=== PATIENT | male | born 1985 | race Two or more races ===

== ENCOUNTER 2023-06-01 21:08 | Emergency (ER) | payer OTHER ==
[~2023-06-01] VITALS: Ht 167.6 cm; Wt 112.5 kg
[2023-06-01] MEDS ORDERED: ENALAPRILAT DIHYDRATE 2.5 MG/2 ML VIAL IV STA (21:52)
[2023-06-01] MEDS ORDERED: METHYLPREDNISOLONE SOD SUCC 125 MG VIAL IV STA (21:52)
[2023-06-01] MEDS ORDERED: CEFTRIAXONE SODIUM 1,000 MG VIAL IM STA (21:53)
[2023-06-01] MEDS ORDERED: BUDESONIDE 0.5 MG/2 ML AMPUL.NEB IH STA (21:53)
[2023-06-01] MEDS ORDERED: LEVALBUTEROL HCL 1.25 MG/3 ML SOLUTION IH SCH (22:00)
[2023-06-01 22:58] LABS: ABG PH 7.461 (7.35-7.45); ABG PO2 66.9 mmHg (80-100); ABG pCO2 36.7 mmHg (35-45)
[2023-06-01 22:59] LABS: BICARBONATE 25.6 mmol/l (23-25); SaO2 94.2 %; Tco2 26.7 mmol/l; allen test SATISFACTORY; o2 21 %; puncture site RADIAL RIGHT
[2023-06-01 23:51] LABS: CALCIUM 9.2 mg/dL (8.5-10.1); CREATININE SERUM 0.88 mg/dL (0.70-1.30); GFR 96.41; POTASSIUM 4.3 mEq/L (3.5-5.1)
[2023-06-02 00:20] LABS: HEMATOCRIT 40.6 % (39.0-48.0); MEAN CORPUSCULAR HGB CONC 34.5 g/dl (32.0-36.0); PLATELET COUNT 506 K/uL (150-450); RED BLOOD COUNT 4.84 M/uL (4.00-6.00); RED CELL DISTRIBUTION WIDTH 13.3 % (11.5-14.5)
[2023-06-02] MEDS ORDERED: LEVALBUTEROL HCL 1.25 MG/3 ML SOLUTION IH STA ×2 (05:07→05:12)
[2023-06-02] MEDS ORDERED: METHYLPREDNISOLONE SOD SUCC 125 MG VIAL IV SCH (06:00)
[2023-06-02] MEDS ORDERED: LEVALBUTEROL HCL 1.25 MG/3 ML SOLUTION IH SCH ×2 (06:00)
[2023-06-02] MEDS ORDERED: METOPROLOL TARTRATE 100 MG TABLET PO STA (07:43)
[2023-06-02] MEDS ORDERED: levoFLOXacin IN DEXTROSE 5 % 5 MG/ML PIGGYBAG IV ONE (12:15)
== END 2023-06-02 13:54 | disposition left against medical advice (07) ==
LOC: ER 21:08
PROVIDERS: General Practice
DX: J16.8 Pneumonia due to other specified infectious organisms (principal); Z88.8 Allergy status to other drugs, medicaments and biological substances; I10 Essential (primary) hypertension; Z20.822 Contact with and (suspected) exposure to COVID-19